=== PATIENT | female | born 1945 | race Caucasian/White ===

== ENCOUNTER 2016-06-06 03:29 | Emergency (ER) | payer OTHER ==
[2016-06-06 04:07] LABS: BASOPHIL# 0.4 X 10^3uL (0.0-0.1); BASOPHILS 2.8 % (0.0-2.0); EOSINOPHILS 2.3 % (0.0-6.0); EOSINOPHILS# 0.4 X 10^3uL (0.0-0.4); HEMATOCRIT 46.4 % (36.0-48.0); HEMOGLOBIN 15.9 g/dL (12.0-16.0); LYMPHOCYTES# 1.9 X 10^3uL (0.8-3.8); MEAN CELL VOLUME 86.2 fL (80.0-100.0); MEAN CORPUS. HGB CONCENTRATION 34.2 g/dL (32.0-36.0); MEAN CORPUSCULAR HEMOGLOBIN 29.4 pg (29.0-35.0); MEAN PLATELET VOLUME 9.1 fL (7.4-10.4); MONOCYTES 6.3 % (2.0-10.0); NEUTROPHILS 76.6 % (54.0-75.0); NEUTROPHILS# 12.2 X 10^3uL (2.6-6.7); PLATELET COUNT 274 X 10^3uL (130-440); RED BLOOD COUNT 5.39 X 10^6uL (4.20-6.10); RED CELL DISTRIBUTION WIDTH 12.1 % (11.5-14.5); WHITE BLOOD COUNT 15.9 X 10^3uL (3.9-10.7)
[2016-06-06] MEDS ORDERED: MORPHINE SULFATE 2 MG/ML SYR ONE (04:11)
[2016-06-06 04:12] LABS: BLOOD UREA NITROGEN 14 mg/dL (7-17); CALCIUM 9.7 mg/dL (8.4-10.2); CHLORIDE 108 mmol/L (98-107); CREATININE 0.7 mg/dL (0.5-1.0); EST GLOMERULAR FILTRATION RATE > 60 mL/min; GLUCOSE 148 mg/dL (70-100); POTASSIUM 4.1 mmol/L (3.5-5.1); SODIUM 141 mmol/L (137-145)
[2016-06-06] MEDS ORDERED: NORMAL SALINE 100 ML IV ONE (04:12)
[2016-06-06] MEDS ORDERED: cefTRIAXone SODIUM 1,000 MG/10 ML VIAL ONE (04:12)
[2016-06-06] MEDS ORDERED: METHYLPREDNISOLONE SOD 125 MG/2 ML VIAL ONE (04:13)
--- NOTE | 2016-06-06 05:37 | CT REPORT ---
HISTORY: Sore throat. COMPARISON: None. TECHNIQUE: This examination was performed using automated exposure control, adjustment of mA or kV according to patient size, and/or use of iterative reconstruction technique. Axial images of the neck obtained af ter administration of intravenous contrast. 100cc Isovue 300 contrast. FINDINGS: The visualized brain parenchyma is unremarkable. Soft tissues of the orbits are unremarkable. Bony structures and paranasal sinuses are unremarkable. The lung apices are within normal limits. There is atherosclerosis of the carotid bulbs and visualized thoracic aorta. There is asymmetric soft tissue fullness and thickening along the right peritonsillar soft tissues ex tending into the right parapharyngeal space with thickening of the aryepiglottic fold and right later al epiglottis. Bilateral peritonsillar calcifications are seen. There is a 1 cm region of heterogeneo us contrast enhancement with internal calcification and no significant fluid. Mild result narrowing o f the oropharynx is seen. There are multiple prominent cervical chain lymph nodes. The thyroid gland is unremarkable. The major salivary glands are unremarkable. IMPRESSION: 1. Asymmetric soft tissue thickening and enhancement of the right peritonsillar and parapharyngeal s pace, involving the aryepiglottic folds and epiglottis with mild narrowing of the airway, likely infe ctious in etiology. Multiple calcifications in the peritonsillar tissues, likely secondary to prior i nfection. A 1 cm region of circumferential contrast enhancement with central calcification and no sig nificant fluid collection, which may represent early abscess formation or phlegmon. 2. A mildly enlarged right cervical chain lymph nodes, likely reactive in etiology. Final Electronic Signature: This report was electronically signed by Laura Witt MD on 06/06/2016 5:35 AM. otis /
[2016-06-06] MEDS ORDERED: AMOX TR/CLAV 875/125 MG 1 TAB TABLET PO ONE (09:44)
--- NOTE | 2016-06-06 09:47 | ER PHYSICIAN DOCUMENTATION ---
Physician Documentation [facility] Name:Maria Luisa Zaidi Age:70 yrs Sex:Female :1945 Arrival Date:06/06/2016 Time:03:29 Bed4 Private MD:Samra Willis ED, John Disposition: 06/06/16 09:24 Discharged to Home/Self Care. Impression: Epiglottitis, w/o Obstruction. - Condition is Good. - Discharge Instructions: Disease, Laryngeal - LARYNGITIS. - Prescriptions for Augmentin 875- 125 mg Oral Tablet - take 1 tablet by ORAL route every 12 hours for 10 days; 20 tablet. Prednisone 20 mg Oral Tablet - take 2 tablet by ORAL route once daily for 5 days; 10 tablet. - Medical Reconciliation form form. - Follow up: Samra Willis; When: Dr. Lazaro Ayala's PA at 1:50pm tomorrow. ; Reason: Continuance of care. - Problem is new. - Symptoms have improved. HPI: 06/06 09:09 This 70 yrs old Female presents to ER via Walk In with complaints of Sore jm Throat. 09:09 The patient presents with sore throat, dysphagia. The patient describes throat pain as jm raw, suffocating. Onset: The symptom(s)/episode began/occurred today. Severity of symptoms: At their worst the symptoms were incapacitating, in the emergency department the symptoms are unchanged. Modifying factors: the symptoms are aggravated by swallowing. Associated signs and symptoms: Pertinent negatives fever. The patient has not experienced similar symptoms in the past. The patient has not recently seen a physician. Pt here because her throat is so raw and pt cannot talk. Her voice is gone and she cannot even swallow liquids. . Historical: - Allergies: NSAIDS; - Home Meds: 1. Metformin Oral 2. Simvastatin Oral - PMHx: Diabetes - NIDDM; - PSHx: Unable to obtain; - Tetanus: unable to assess. - Ebola Screening: : Patient denies exposure to infectious person. Patient denies travel to an Ebola-affected area in the 21 days before illness onset. . - Immunization history: Unable to Obtain. - Social history: Smoking status: Patient states was never smoker of tobacco. Patient/guardian denies using alcohol. ROS: 04:00 MS/extremity: Negative for rash. jm 04:00 Neuro: Negative for headache, weakness. 04:00 Psych: Negative for drug dependence, alcohol dependence. 04:00 All other systems are negative. 09:13 Constitutional: Negative for body aches, fatigue, fever. jm 09:13 ENT: Positive for sore throat, Negative for nasal discharge, rhinorrhea, sinus congestion. 09:13 Neck: Positive for tenderness, of the right submandibular area and right sternocleidomastoid. 09:13 Cardiovascular: Negative for chest pain. 09:13 Respiratory: Positive for shortness of breath, Negative for cough. 09:13 Abdomen/GI: Negative for abdominal pain, nausea, vomiting, diarrhea. Exam: 04:00 Constitutional: The patient appears alert, awake, comfortable. 04:00 Eyes: Periorbital structures: appear normal, Conjunctiva: normal. 04:00 ENT: Posterior pharynx: Uvula: edematous, erythema, deviated 45 degress to the L, swelling, that is moderate, erythema, that is moderate, exudate, is not appreciated, peritonsillar mass, is not appreciated, pooling of secretions, is not appreciated, Voice: hot potato, Breath odor: is normal. 04:00 ENT: Mouth: drooling, is not appreciated. 04:00 Neck: External neck: swelling, is not appreciated, ROM/movement: is normal. 04:00 Cardiovascular: Rate: tachycardic, Rhythm: regular. 04:00 Respiratory: the patient does not display signs of respiratory distress, Respirations: normal, Breath sounds: are normal, stridor, is not appreciated. 04:00 Abdomen/GI: Bowel sounds: normal, Palpation: abdomen is soft and non-tender. 04:00 Skin: Appearance: Color: pink, no rash present. 04:00 Neuro: Mentation: is normal, Memory: is normal, Gait: is steady. 04:00 Psych: Behavior/mood is pleasant, cooperative, anxious, Affect is calm. 04:00 Special observations: writing down words b/c she does not want to talk. . Vital Signs: 03:29 Pulse Ox 90% ; rm1 03:37 BP 173 / 91; Pulse 104; Resp 22; Temp 98; Pulse Ox 91% ; Pain 7/10; lb 04:52 BP 159 / 93; Pulse 83; Resp 20; Pulse Ox 96% on 2 lpm NC; lb 05:58 BP 146 / 100; Pulse 81; Pulse Ox 93% on 2 lpm NC; lb 07:04 BP 146 / 89; Pulse 72; Pulse Ox 92% ; st 08:52 BP 157 / 90; Pulse 87; Pulse Ox 95% on 2 lpm NC; st MDM: 03:33 Patient medically screened. 12:15 Differential diagnosis: epiglottitis, group A strep tonsillitis, laryngitis, jm peritonsillar abscess pharyngitis, retropharyngeal abcess. Data reviewed: vital signs, nurses notes, old medical records, lab test result(s), radiologic studies, and as a result, I will continue to observe the patient. Counseling: I had a detailed discussion with the patient and/or guardian regarding: the historical points, exam findings, and any diagnostic results supporting the discharge/admit diagnosis, lab results, radiology results, the need for outpatient follow up, with the patient's primary care provider. Response to treatment: the patient's symptoms have markedly improved after treatment. Physician consultation: Samra Willis regarding outpatient follow-up, and will see patient PA will. tomorrow. ED course: Pt w muffled voice and deviated uvula. Concern for abscess. Pt immediately given Solu-Medrol and Rocephin. CT scan ordered w results showing a possible tiny abscess, but certainly nothing that anyone can drain, based on size and location. Pt observed in ER for 5 hours as the steroids kicked in. Pt felt MUCH improved and had her voice back. I spoke w PCP, DR. Willis. She was updated on condition and agrees w my treatment plan of DC home w prednisone and Augmentin and her PA, Suresh Grey can see in the AM. . 06/06 04:09 Order name: CBC AUTO DIF, MDIF/RMOR IF IND; Complete Time: 05:39 EDMS 06/06 04:12 Order name: BASIC METABOLIC PANEL; Complete Time: 05:39 EDMS 06/06 06:10 Order name: RAPID STREP SCRN CUL IF NEG; Complete Time: 09:05 EDMS 06/06 03:47 Order name: CT Scan;neck Softtissw/[id number] 06/06 05:40 Order name: CAT SCAN;NECK SOFT TISSW/[id number]; Complete Time: 09:05 EDMS 06/06 03:47 Order name: Iv Saline Lock; Complete Time: 03:57 jm 06/06 03:47 Order name: Pulse Ox Continuous; Complete Time: 03:58 Dispensed Medications: 04:10 Drug: NS 0.9% 1000 ml; Route: IV; Rate: bolus; Site: right antecubital; lb 07:00 Follow up: IV Status: Completed infusion; IV Intake: 1000ml st 04:11 Drug: Solu-MEDROL 125 mg; Route: IVP; Site: right antecubital; lb 04:52 Follow up: Response: No change in condition lb 04:11 Drug: morphine 2 mg; Route: IVP; Site: right antecubital; lb 04:52 Follow up: Response: Pain is decreased lb 04:23 Drug: Rocephin 1 grams; Route: IVPB; Site: right antecubital; lb 04:52 Follow up: IV Status: Completed infusion; IV Intake: 100ml lb 09:45 Drug: Augmentin 875 mg 1 tabs; Route: PO; st 09:46 Follow up: Response: Medication administered at discharge. st Signatures: Brenda Penny, RN RN Rahul Benitez MD MD jm Bollock, Lynda lb
--- NOTE | 2016-06-06 09:47 | ER NURSING DOCUMENTATION ---
Nurse's Notes [facility] Name:Maria Luisa Zaidi Age:70 yrs Sex:Female :1945 Arrival Date:06/06/2016 Time:03:29 Bed4 Private MD:Samra Willis Diagnosis:Epiglottitis, w/o Obstruction Presentation: 06/06 03:34 Presenting complaint: Patient states: sorethroat for 3 days, worse today. hurts to lb swallow. Transition of care: Home. Notified ED Physician of Andrés Emmanuel notified. 03:34 Method Of Arrival: Walk In lb 03:34 Acuity: ROBIN 3 lb Triage Assessment: 03:35 General: Appears uncomfortable, Behavior is anxious, pleasant. Pain: Complains of pain lb in thyroid cartilage Pain does not radiate. Pain currently is 7 out of 10 on a pain scale. 03:56 EENT: Throat on right swollen. lb Historical: - Allergies: NSAIDS; - Home Meds: 1. Metformin Oral 2. Simvastatin Oral - PMHx: Diabetes - NIDDM; - PSHx: Unable to obtain; - Tetanus: unable to assess. - Ebola Screening: : Patient denies exposure to infectious person. Patient denies travel to an Ebola-affected area in the 21 days before illness onset. . - Immunization history: Unable to Obtain. - Social history: Smoking status: Patient states was never smoker of tobacco. Patient/guardian denies using alcohol. Screenin:38 Infectious Disease Risk None. Abuse screen: Denies threats or abuse. Denies injuries lb from another. Nutritional screening: No deficits noted. Assessment: 03:38 See Triage Assessment done by same RN. Respiratory: Airway is patent Trachea midline lb Respiratory effort is even, unlabored, Breath sounds are clear bilaterally. 07:09 General: pt resting quietly. Pt states she is feeling better and can talk better. st Awaiting 9 so ER can talk to PCP.. Vital Signs: 03:29 Pulse Ox 90% ; rm1 03:37 BP 173 / 91; Pulse 104; Resp 22; Temp 98; Pulse Ox 91% ; Pain 7/10; lb 04:52 BP 159 / 93; Pulse 83; Resp 20; Pulse Ox 96% on 2 lpm NC; lb 05:58 BP 146 / 100; Pulse 81; Pulse Ox 93% on 2 lpm NC; lb 07:04 BP 146 / 89; Pulse 72; Pulse Ox 92% ; st 08:52 BP 157 / 90; Pulse 87; Pulse Ox 95% on 2 lpm NC; st ED Course: 03:30 Patient arrived in ED. em2 03:33 Rahul Bowen MD is Attending Physician. jm 03:34 Cindy Mckenzie is Primary Nurse. lb 03:34 Triage completed. lb 03:38 Valuables Remains with patient Patient has correct armband on for positive lb identification. Call light in reach. 04:50 Samra Willis is Private Physician. em2 05:[address] douglas 05:[address]. douglas 05:04 CT Scan;neck Softtissw/[id number] Sent. douglas 09:[address] 09:24 Samra Willis is Referral Physician. chloe Administered Medications: 04:10 Drug: NS 0.9% 1000 ml; Route: IV; Rate: bolus; Site: right antecubital; lb 07:00 Follow up: IV Status: Completed infusion; IV Intake: 1000ml st 04:11 Drug: Solu-MEDROL 125 mg; Route: IVP; Site: right antecubital; lb 04:52 Follow up: Response: No change in condition lb 04:11 Drug: morphine 2 mg; Route: IVP; Site: right antecubital; lb 04:52 Follow up: Response: Pain is decreased lb 04:23 Drug: Rocephin 1 grams; Route: IVPB; Site: right antecubital; lb 04:52 Follow up: IV Status: Completed infusion; IV Intake: 100ml lb 09:45 Drug: Augmentin 875 mg 1 tabs; Route: PO; st 09:46 Follow up: Response: Medication administered at discharge. st Intake: 04:52 IV: 100ml; Total: 100ml. lb 07:00 IV: 1000ml; Total: 1100ml. st Outcome: 09:24 Discharge ordered by . jm 09:46 Discharged to home ambulatory. st 09:46 Condition: improved 09:46 Discharge instructions given to patient, Instructed on discharge instructions, follow up and referral plans. medication usage, Prescriptions given X 2. 09:46 Patient [address] the ED. st 06/07 09:46 Discharge F/U Call: Unable to reach: no answer st Signatures: Brenda Penny RN RN Rahul Benitez MD MD jm Abbott, Jessa Treadwell-Maria Dolores garcia em2 Cindy Mckenzie Rachael 1
== END 2016-06-06 09:47 | disposition home or self-care (01) ==
LOC: ER 03:29
DX: J05.10 Acute epiglottitis without obstruction (principal); J02.9 Acute pharyngitis, unspecified; R13.10 Dysphagia, unspecified; E11.9 Type 2 diabetes mellitus without complications; Z79.899 Other long term (current) drug therapy
CPT/HCPCS: 70491; 80048; 85025; 86403; 87081; 96361; 96365; 96368; 96375; 99284; J0696; J2270; J2930

== ENCOUNTER 2016-07-08 22:46 | Emergency (ER) | payer OTHER ==
[2016-07-08 23:24] LABS: BASOPHIL# 0.1 X 10^3uL (0.0-0.1); BASOPHILS 0.8 % (0.0-2.0); EOSINOPHILS 4.4 % (0.0-6.0); EOSINOPHILS# 0.7 X 10^3uL (0.0-0.4); HEMATOCRIT 45.7 % (36.0-48.0); HEMOGLOBIN 15.6 g/dL (12.0-16.0); LYMPHOCYTES 19.6 % (20.0-40.0); LYMPHOCYTES# 2.9 X 10^3uL (0.8-3.8); MEAN CELL VOLUME 86.6 fL (80.0-100.0); MEAN CORPUS. HGB CONCENTRATION 34.2 g/dL (32.0-36.0); MEAN CORPUSCULAR HEMOGLOBIN 29.6 pg (29.0-35.0); MEAN PLATELET VOLUME 8.8 fL (7.4-10.4); MONOCYTES 6.4 % (2.0-10.0); NEUTROPHILS 68.8 % (54.0-75.0); NEUTROPHILS# 10.2 X 10^3uL (2.6-6.7); PLATELET COUNT 281 X 10^3uL (130-440); RED BLOOD COUNT 5.28 X 10^6uL (4.20-6.10); RED CELL DISTRIBUTION WIDTH 12.6 % (11.5-14.5); WHITE BLOOD COUNT 14.9 X 10^3uL (3.9-10.7)
[2016-07-08 23:32] LABS: BLOOD UREA NITROGEN 16 mg/dL (7-17); CALCIUM 10.4 mg/dL (8.4-10.2); CHLORIDE 105 mmol/L (98-107); CREATININE 0.7 mg/dL (0.5-1.0); EST GLOMERULAR FILTRATION RATE > 60 mL/min; GLUCOSE 123 mg/dL (70-100); POTASSIUM 4.1 mmol/L (3.5-5.1); SODIUM 141 mmol/L (137-145)
--- NOTE | 2016-07-09 00:04 | CT REPORT ---
HISTORY: Sore throat COMPARISON: CTA neck with contrast 06/06/2016.. TECHNIQUE: This examination was performed using automated exposure control, adjustment of mA or kV according to patient size, and/or use of iterative reconstruction technique. Axial images of the neck obtained af ter administration of intravenous contrast. 100cc Isovue 300 and contrast. FINDINGS: The visualized brain parenchyma is unremarkable. Soft tissues of the orbits are unremarkable. Bony structures and paranasal sinuses are unremarkable. The lung apices are within normal limits. The gr eat vessels of the head and neck are grossly unremarkable. There is a peripherally enhancing fluid collection within the right patella teen tonsil measuring 1.4 x 0.9 x 0.9 cm. There is surrounding soft tissue edema without clear extension of abscess into the p eritonsillar space. There are calcifications in both palatine tonsils, likely related to right or inf lammatory process. There is no evidence of abscess extension into the prevertebral space or sublingua l space. The epiglottis contains some fluid anteriorly but is otherwise unremarkable. There is minimal narrowi ng of the airway at the level of the palatine tonsils but no critical stenosis is seen. There is effa cement of the right piriform sinus secondary to soft tissue edema. The focal folds are symmetric. Th e thyroid gland is unremarkable. The major salivary glands are unremarkable. No pathologic adenopat hy is identified. IMPRESSION: 1. Right palatine tonsillar abscess measuring 1.4 x 0.9 x 0.9 cm. This has developed since the previo us exam from approximately one month ago. There is mild narrowing of the oropharynx at the level of t he palatine tonsil secondary to soft tissue edema. Results were discussed with emergency department physician at 11:55 AM 07/09/2016. Final Electronic Signature: This report was electronically signed by Torin Stewart MD on 07/09/2016 12 :01 AM. tparadis /
[2016-07-09] MEDS ORDERED: cefTRIAXone SODIUM 1,000 MG/10 ML VIAL ONE (00:17)
[2016-07-09] MEDS ORDERED: METHYLPREDNISOLONE SOD 125 MG/2 ML VIAL ONE (00:17)
[2016-07-09] MEDS ORDERED: NORMAL SALINE ADDVANTAGE 100 ML IV ONE (00:18)
[2016-07-09] MEDS ORDERED: DEXAMETHASONE 10 MG/ML VIAL ONE (00:54)
[2016-07-09] MEDS ORDERED: CLINDAMYCIN/D5W 50 ML IV ONE (00:54)
--- NOTE | 2016-07-09 01:23 | ER PHYSICIAN DOCUMENTATION ---
Physician Documentation [facility] Name:Maria Luisa Zaidi Age:70 yrs Sex:Female :1945 Arrival Date:07/08/2016 Time:22:46 Bed4 Private MD:Samra Willis ED, Scott Disposition: 07/09/16 00:04 Discharged to Home/Self Care. Impression: Peritonsillar Abscess. - Condition is Serious. - Discharge Instructions: PERITONSILLAR ABSCESS. - Prescriptions for Clindamycin HCl 300 mg Oral Capsule - take 1 capsule by ORAL route every 6 hours for 10 days; 40 capsule. Prednisone 20 mg Oral Tablet - take 2 tablet by ORAL route once daily for 5 days; 10 tablet. - Medical Reconciliation form form. - Follow up: Samra Willis; When: Tomorrow; Reason: Continuance of care. - Problem is an ongoing problem. - Symptoms have improved. HPI: 07/09 00:01 This 70 yrs old Female presents to ER via Private Vehicle with complaints of sc Sore Throat. 00:01 The patient presents with sore throat, dysphagia. The patient describes throat pain as sc raw. Onset: The symptom(s)/episode began/occurred today. Severity of symptoms: At their worst the symptoms were moderate. Associated signs and symptoms: The patient has no apparent associated signs or symptoms. The patient has experienced a previous episode, last month. Historical: - Allergies: NSAIDS; - Home Meds: 1. Metformin Oral 2. Simvastatin Oral - PMHx: DIABETES - NIDDM; Epiglottitis, w/o Obstruction (June 06, 2016); - Tetanus: unknown. - Ebola Screening: : No symptoms or risks identified at this time. . - Immunization history: Pneumococcal vaccine is not up to date, Patient has never been vaccinated. - Social history: Smoking status: Patient states was never smoker of tobacco. ROS: 00:01 Constitutional: Negative for fever, chills, and weight loss. sc Eyes: Negative for injury, pain, redness, and discharge. Neck: Negative for injury, pain, and swelling. Cardiovascular: Negative for chest pain, palpitations, and edema. Respiratory: Negative for shortness of breath, cough, wheezing, and pleuritic chest pain. Skin: Negative for injury, rash, and discoloration. 00:01 Neuro: Negative for headache, weakness, numbness, tingling, and seizure. ak 00:01 ENT: Positive for ear pain, sore throat. Exam: Constitutional: This is a well developed, well nourished patient who is awake, alert, and in no acute distress. Head/Face: Normocephalic, atraumatic. Neck: Trachea midline, no thyromegaly or masses palpated, and no cervical lymphadenopathy. Supple, full range of motion without nuchal rigidity, or vertebral point tenderness. No meningismus. Respiratory: Lungs have equal breath sounds bilaterally, clear to auscultation and percussion. No rales, rhonchi or wheezes noted. No increased work of breathing, no retractions or nasal flaring. 00:02 Skin: Warm, dry with normal turgor. Normal color with no rashes, no lesions, and no sc evidence of cellulitis. 00:02 ENT: Mouth: no acute changes, Posterior pharynx: Airway: normal, no evidence of obstruction, patent, Tonsils: enlarged on the right, swelling, erythema, peritonsillar mass, is noted on the right. 00:23 Neck: ROM/movement: is normal. ak 00:23 Respiratory: the patient does not display signs of respiratory distress, Respirations: normal, Breath sounds: are normal, clear throughout. Vital Signs: 07/08 22:51 BP 153 / 98; Pulse 101; Resp 18; Temp 98.4; Pulse Ox 92% on R/A; Weight 99.79 kg; mv Height 5 ft. 10 in. (177.80 cm); 07/09 01:21 BP 165 / 91; Pulse 70; Resp 15; Pulse Ox 94% on R/A; Pain 0/10; rh 07/08 22:51 Body Mass Index 31.57 (99.79 kg, 177.80 cm) mv MDM: 07/08 23:34 Patient medically screened. ak 07/09 00:02 Differential diagnosis: peritonsillar abscess tonsillitis. Data reviewed: vital signs, ak nurses notes, old medical records, lab test result(s), and as a result, I will discharge patient, administer antibiotics Rocephin, administer steroids, Solumedrol. Counseling: I had a detailed discussion with the patient and/or guardian regarding: the historical points, exam findings, and any diagnostic results supporting the discharge/admit diagnosis, lab results, radiology results, the need for outpatient follow up, for a referral to a specialist. Medication response: The patient's symptoms have improved. 00:23 Physician consultation: Katlin Maynard was called at 00:26, was contacted at 00:26, ak regarding patient's condition, need to evaluate the patient as soon as possible. 07/08 23:28 Order name: CBC AUTO DIF, MDIF/RMOR IF IND; Complete Time: 00:16 EDTN 07/08 23:31 Interpretation: Abnormal: WHITE BLOOD COUNT 14.9. ak 07/08 23:34 Order name: BASIC METABOLIC PANEL; Complete Time: 23:35 EDMS 07/08 23:34 Interpretation: Normal Except: CALCIUM 10.4. ak 07/08 23:53 Order name: CAT SCAN;NECK SOFT TISSW/[id number] EDTN 07/08 23:53 Order name: CAT SCANNECK SOFT TISSW/[id number]; Complete Time: 00:16 EDMS 07/09 00:05 Order name: CAT SCAN;NECK SOFT TISSW/[id number]; Complete Time: 00:16 EDTN 07/08 23:07 Order name: Iv Saline Lock; Complete Time: 23:13 rh Dispensed Medications: 00:11 Drug: methylPREDNISolone 125 mg; Route: IVP; Site: right antecubital; rh 00:35 Follow up: Response: No adverse reaction rh 00:11 Drug: Rocephin 1 grams; Route: IVPB; Site: right antecubital; rh 00:41 Follow up: IV Status: Completed infusion; IV Intake: 50ml rh 00:47 Drug: Decadron 10 mg IVP - Dexamethasone 10 mg; Route: IVP; Site: right antecubital; rh 01:21 Follow up: Response: No adverse reaction rh 00:47 Drug: Clindamycin 900 mg; Route: IVPB; Site: right antecubital; rh 01:17 Follow up: IV Status: Completed infusion rh Signatures: Pablo Leigh MD MD sc Hofsess, Rachel darwin bazzi
--- NOTE | 2016-07-09 01:23 | ER NURSING DOCUMENTATION ---
Nurse's Notes [facility] Name:Maria Luias Zaidi Age:70 yrs Sex:Female :1945 Arrival Date:07/08/2016 Time:22:46 Bed4 Private MD:Samra Willis Diagnosis:Peritonsillar Abscess Presentation: 07/08 22:49 Acuity: ROBIN 2 rh 22:55 Presenting complaint: Patient states: severe sore throat with pain radiating into ear, mv 1 month ago had similar symptoms and was diagnosed with epiglotitis. Transition of care: Home. Notified ED Physician of patient's arrival and CC Dr. Leigh notified. 23:02 Method Of Arrival: Private Vehicle 23:05 Presenting complaint: Patient states: Pt had epiglottitis one month ago without rh obstruction. She was on prednisone and augmentin, she finished that recently. Pt states that tonight she is having pain in her throat that radiates up into her ear. Pt is able to speak in full sentences. Transition of care: Home. 23:05 Method Of Arrival: Private Vehicle Triage Assessment: 23:00 General: Appears uncomfortable, Behavior is appropriate for age, cooperative, pleasant. mv Pain: Complains of pain in throat right side. EENT: Throat has enlarged tonsils on right. Historical: - Allergies: NSAIDS; - Home Meds: 1. Metformin Oral 2. Simvastatin Oral - PMHx: DIABETES - NIDDM; Epiglottitis, w/o Obstruction (June 06, 2016); - Tetanus: unknown. - Ebola Screening: : No symptoms or risks identified at this time. . - Immunization history: Pneumococcal vaccine is not up to date, Patient has never been vaccinated. - Social history: Smoking status: Patient states was never smoker of tobacco. Screenin:06 Infectious Disease Risk None. Abuse screen: Denies threats or abuse. Denies injuries rh from another. Nutritional screening: No deficits noted. Assessment: 23:06 See Triage Assessment done by same RN. Vital Signs: 22:51 BP 153 / 98; Pulse 101; Resp 18; Temp 98.4; Pulse Ox 92% on R/A; Weight 99.79 kg; mv Height 5 ft. 10 in. (177.80 cm); 07/09 01:21 BP 165 / 91; Pulse 70; Resp 15; Pulse Ox 94% on R/A; Pain 0/10; rh 07/08 22:51 Body Mass Index 31.57 (99.79 kg, 177.80 cm) mv ED Course: 07/08 22:47 Patient arrived in ED. em2 22:47 Samra Willis is Private Physician. em2 22:49 Samra Daniel is Primary Nurse. rh 22:49 Triage completed. rh 23:00 Notified ED Physician of patient's arrival and chief complaint. Dr. Leigh notified. rh 23:06 Valuables Remains with patient Patient has correct armband on for positive rh identification. Placed in gown. Bed in low position. Call light in reach. Side rails up X 1. 23:08 Missed attempts: 20 gauge X 1 in right antecubital area. em1 23:14 Inserted peripheral IV: saline lock: 20 gauge in right antecubital area and blood mv collected. 23:21 Pablo Leigh MD is Attending Physician. sc 23:[address] ms 23:53 CAT SCAN;NECK SOFT TISSW/[id number] In Process Unspecified. EDMS 23:53 CAT SCANNECK SOFT TISSW/[id number] In Process Unspecified. EDMS 23:[address] Patient moved back from [address]. ms 23:55 CAT SCAN;NECK SOFT TISSW/[id number] Sent. ms 23:55 CAT SCANNECK SOFT TISSW/[id number] Sent. ms 05 00:03 Samra Willis is Referral Physician. sc 01:21 Discontinued IV lock bleeding controlled. em1 Administered Medications: 00:11 Drug: methylPREDNISolone 125 mg; Route: IVP; Site: right antecubital; rh 00:35 Follow up: Response: No adverse reaction rh 00:11 Drug: Rocephin 1 grams; Route: IVPB; Site: right antecubital; rh 00:41 Follow up: IV Status: Completed infusion; IV Intake: 50ml rh 00:47 Drug: Decadron 10 mg IVP - Dexamethasone 10 mg; Route: IVP; Site: right antecubital; rh 01:21 Follow up: Response: No adverse reaction rh 00:47 Drug: Clindamycin 900 mg; Route: IVPB; Site: right antecubital; rh 01:17 Follow up: IV Status: Completed infusion rh Intake: 00:41 IV: 50ml; Total: 50ml. rh Outcome: 00:04 Discharge ordered by . sabrina 01:21 Discharged to home ambulatory. 01:21 Condition: improved 01:21 Discharge Assessment: Patient awake, alert and oriented x 3. No cognitive and/or functional deficits noted. Patient verbalized understanding of disposition instructions. 01:21 Discharge instructions given to patient, Instructed on discharge instructions, follow up and referral plans. medication usage, Demonstrated understanding of instructions, medications, Prescriptions given X 2. 01:21 IV D/Dileep 01:22 Patient left the ED. Signatures: Dispatcher [employer] EDMS Pablo Leigh MD MD sc Strickland, Mary ms [employer], [employer] em1 Meinking-reg, Joann-reg em2 Samra Daniel darwin bazzi
== END 2016-07-09 01:22 | disposition home or self-care (01) ==
LOC: ER 22:46
DX: J36 Peritonsillar abscess (principal); J02.9 Acute pharyngitis, unspecified; R13.10 Dysphagia, unspecified; J35.1 Hypertrophy of tonsils; E11.9 Type 2 diabetes mellitus without complications; Z79.899 Other long term (current) drug therapy
CPT/HCPCS: 70491; 80048; 85025; 96365; 96367; 96375; 99284; J0696; J1100; J2930